=== PATIENT | female | born 1975 | race Caucasian/White ===

== ENCOUNTER → 2017-03-02 | Outpatient (CLI) | payer BC ==
[~2017-03-02] MED LIST: BUMETANIDE0.5 MG PO; DIFLUCAN 100MG100 MG PO; HCTZ 25MG TAB25 MG PO; HCTZ 25MG25 MG PO; LANTUS SOLOS100 U/ML SQ; NASONEX0.05 MG/AC NS; NEURONTIN300 MG/CAP PO; PEPCID AC 10MG10 MG PO; PRENATAL1 TA1 PO; PROTONIX 40MG T40 MG PO; ZYRTEC10 M1 PO; ZYRTEC10 MG PO
== END ==
LOC: MC.RAD 14:58
DX: Z12.31 Encounter for screening mammogram for malignant neoplasm of breast (principal)

== ENCOUNTER → 2017-06-02 | Outpatient (CLI) | payer BC | LOC: COL.VAS 14:05 | DX: L53.9 Erythematous condition, unspecified (principal); M79.89 Other specified soft tissue disorders ==

== ENCOUNTER → 2017-08-04 | Outpatient (CLI) | payer BC | LOC: COL.RAD 12:42 | DX: N18.3 Chronic kidney disease, stage 3 (moderate) (principal); N28.89 Other specified disorders of kidney and ureter; N83.201 Unspecified ovarian cyst, right side ==

== ENCOUNTER → 2017-11-29 | Outpatient (CLI) | payer BC | LOC: SUN.DIA 08-16 10:51 | DX: E11.40 Type 2 diabetes mellitus with diabetic neuropathy, unspecified (principal); E78.5 Hyperlipidemia, unspecified; E66.9 Obesity, unspecified; Z68.42 Body mass index [BMI] 45.0-49.9, adult; Z71.3 Dietary counseling and surveillance | CPT/HCPCS: G0108 ==

== ENCOUNTER → 2018-12-11 | Outpatient (CLI) | payer BC | LOC: MC.RAD 07:15 | DX: Z12.31 Encounter for screening mammogram for malignant neoplasm of breast (principal) ==

== ENCOUNTER 2019-07-24 17:46 | Emergency (ER) | payer BC ==
[~2019-07-24] VITALS: Ht 162.6 cm; Wt 119.5 kg
[2019-07-24 17:57] VITALS: BP 126/81; TEMP 97.7
[2019-07-24] MEDS ORDERED: LIPITOR20 MG PO (19:04)
[2019-07-24] MEDS ORDERED: PROTONIX 40MG T40 MG PO (19:04)
[2019-07-24] MEDS ORDERED: GLUCOPHAGE XR500 M1 PO (19:05)
[2019-07-24] MEDS ORDERED: NEURONTIN300 MG/CAP PO (19:05)
[2019-07-24] MEDS ORDERED: NOVOLOG FLEX100 U/ML SQ (19:05)
[2019-07-24] MEDS ORDERED: AMOXICILLIN 8751 TAB PO (20:17)
[2019-07-24 20:50] VITALS: PULSE 87
== END 2019-07-24 20:53 | disposition home or self-care (01) ==
LOC: COL.ER 17:46
DX: S91.151A Open bite of right great toe without damage to nail, initial encounter (principal); I10 Essential (primary) hypertension; E11.9 Type 2 diabetes mellitus without complications; Z79.4 Long term (current) use of insulin; Z23 Encounter for immunization; Z91.040 Latex allergy status; W55.01XA Bitten by cat, initial encounter

== ENCOUNTER 2019-07-26 18:57 | Emergency (ER) | payer BC ==
[~2019-07-26] VITALS: Ht 162.6 cm; Wt 119.5 kg
[~2019-07-26 18:57] MED LIST changes: +AMOXICILLIN 8751 TAB PO; +GLUCOPHAGE XR500 M1 PO; +LIPITOR20 MG PO; +NOVOLOG FLEX100 U/ML SQ
[2019-07-26 19:03] VITALS: BP 131/79; TEMP 98.6
[2019-07-26 20:42] VITALS: PULSE 92
== END 2019-07-26 20:42 | disposition home or self-care (01) ==
LOC: COL.ER 18:57
DX: S91.151A Open bite of right great toe without damage to nail, initial encounter (principal); Z20.3 Contact with and (suspected) exposure to rabies; Z23 Encounter for immunization; Z79.4 Long term (current) use of insulin; W55.01XA Bitten by cat, initial encounter
CPT/HCPCS: 90375

== ENCOUNTER 2019-08-04 11:56 | Outpatient (RCR) | payer BC ==
[~2019-08-04] VITALS: Ht 162.6 cm; Wt 119.5 kg
[2019-08-04 12:12] VITALS: BP 135/73; PULSE 93; TEMP 97.7
[2019-08-25] MEDS ORDERED: ZYLOPRIM 100MG100 MG PO (19:36)
[2019-08-25] MEDS ORDERED: LYRICA 50MG CAP50 MG PO (19:37)
[2019-08-25] MEDS ORDERED: OZEMPIC0.25 MG/0. SQ (19:37)
[2019-08-26] MEDS ORDERED: NORCO 325 MG-51 TAB PO (01:51)
[2019-08-26] MEDS ORDERED: ZOFRAN ODT4 MG PO (01:51)
[2019-08-28] MEDS ORDERED: ZYLOPRIM 300MG300 MG PO (06:14)
[2019-08-28] MEDS ORDERED: LYRICA200 MG PO (06:14)
[2019-08-28] MEDS ORDERED: LASIX 40MG TABL40 MG PO (06:15)
[2019-08-28] MEDS ORDERED: TRESIBA FL200 UNIT/1 SQ (16:06)
[2019-08-29] MEDS ORDERED: IBU600 MG PO (09:19)
[2019-08-29] MEDS ORDERED: PERCOCET 325 MG1 TA2 PO (09:20)
[2019-08-30] MEDS ORDERED: INDOCIN 25MG CA25 MG PO (09:07)
== END 2019-10-29 | disposition still patient (30) ==
LOC: EUO
DX: Z29.14 Encounter for prophylactic rabies immune globulin (principal); Z23 Encounter for immunization; S91.151A Open bite of right great toe without damage to nail, initial encounter

== ENCOUNTER 2019-08-13 13:12 | Outpatient (RCR) | payer BC ==
[2019-08-13 13:31] VITALS: BP 124/74; PULSE 85; TEMP 97.6
[2019-08-25] MEDS ORDERED: ZYLOPRIM 100MG100 MG PO (19:36)
[2019-08-25] MEDS ORDERED: LYRICA 50MG CAP50 MG PO (19:37)
[2019-08-25] MEDS ORDERED: OZEMPIC0.25 MG/0. SQ (19:37)
[2019-08-26] MEDS ORDERED: ZOFRAN ODT4 MG PO (01:51)
[2019-08-26] MEDS ORDERED: NORCO 325 MG-51 TAB PO (01:51)
[2019-08-28] MEDS ORDERED: LYRICA200 MG PO (06:14)
[2019-08-28] MEDS ORDERED: ZYLOPRIM 300MG300 MG PO (06:14)
[2019-08-28] MEDS ORDERED: LASIX 40MG TABL40 MG PO (06:15)
[2019-08-28] MEDS ORDERED: TRESIBA FL200 UNIT/1 SQ (16:06)
[2019-08-29] MEDS ORDERED: IBU600 MG PO (09:19)
[2019-08-29] MEDS ORDERED: PERCOCET 325 MG1 TA2 PO (09:20)
[2019-08-30] MEDS ORDERED: INDOCIN 25MG CA25 MG PO (09:07)
== END 2019-11-11 | disposition home or self-care (01) ==
LOC: EUO
DX: Z29.14 Encounter for prophylactic rabies immune globulin (principal); Z23 Encounter for immunization; S91.151A Open bite of right great toe without damage to nail, initial encounter

== ENCOUNTER 2019-08-25 19:21 | Emergency (ER) | payer BC ==
[~2019-08-25] VITALS: Ht 162.6 cm; Wt 121.4 kg
[2019-08-25 19:32] VITALS: BP 129/85; TEMP 98.9
[2019-08-25] MEDS ORDERED: ZYLOPRIM 100MG100 MG PO (19:36)
[2019-08-25] MEDS ORDERED: OZEMPIC0.25 MG/0. SQ (19:37)
[2019-08-25] MEDS ORDERED: LYRICA 50MG CAP50 MG PO (19:37)
[2019-08-25 20:19] LABS: BASO # 0.1 (0.0-0.2); BASO % 0.7 % (0.0-2.0); EOS # 0.2 (0.0-0.7); EOS % 2.8 % (0-4.0); GRAN # 4.5 (1.4-6.5); GRAN % 63.1 % (42.2-75.2); HEMATOCRIT 44.1 % (37.0-47.0); HEMOGLOBIN 14.5 g/dl (12.5-16.0); LYMPH % 27.4 % (20.0-51.0); MEAN CELL VOLUME 84 fl (80.0-100.0); MEAN CORPUSCULAR HEMOGLOBIN 28 pg (27.0-31.0); MEAN CORPUSCULAR HGB CONC 33 g/dl (33.0-37.0); MEAN PLATELET VOLUME 10.4 fl (7.4-10.4); MONO # 0.4 (0.1-0.6); MONO % 5.6 % (1.7-9.3); PLATELET COUNT 243 K/mm3 (130-400); RED BLOOD COUNT 5.23 M/mm3 (4.10-5.30); REDCELL DISTRIBUTION WIDTH-CV 14.5 % (11.5-14.5)
[2019-08-25 20:31] LABS: ALBUMIN 4.6 gm/dL (3.5-5.0); BILIRUBIN,TOTAL 0.7 mg/dL (0.0-1.0); C-REACTIVE PROTEIN 0.9 mg/dL (0.0-0.9); CALCIUM 9.7 mg/dL (8.4-10.2); CREATININE, serum 1.14 (0.52-1.25); POTASSIUM 3.2 mmol/L (3.4-5.0); TOTAL PROTEIN 8.2 gm/dL (6.4-8.2)
[2019-08-25 21:04] LABS: COLLECTION METHOD CLEAN CATCH
[2019-08-25 21:14] LABS: PH 6 (5-8); SQUAMOUS EPITHELIAL 0-2 /hpf; URINE APPEARANCE Clear; URINE BACTERIA None Seen /hpf; URINE BILIRUBIN Negative (NEGATIVE); URINE BLOOD Negative (NEGATIVE); URINE COLOR Yellow; URINE GLUCOSE 3+ (NEGATIVE); URINE KETONE Negative (NEGATIVE); URINE LEUKOCYTE ESTERASE Negative (NEGATIVE); URINE NITRATE Negative (NEGATIVE); URINE PROTEIN(semi-quant) Negative (NEGATIVE); URINE RBC 0-2 /hpf; URINE UROBILINOGEN Negative (NEGATIVE)
[2019-08-26] MEDS ORDERED: ZOFRAN ODT4 MG PO (01:51)
[2019-08-26] MEDS ORDERED: NORCO 325 MG-51 TAB PO (01:51)
[2019-08-26 02:10] VITALS: PULSE 75
[2019-08-27 00:18] LABS: CA-125 21.7 U/mL (0.0-35.0)
[2019-08-27 12:01] LABS: CARCINOEMBRYONIC ANTIGEN 1.9 ng/mL (0.0-5.0)
== END 2019-08-26 02:10 | disposition home or self-care (01) ==
LOC: COL.ER 19:21
PROVIDERS: Emergency Medicine
DX: N83.9 Noninflammatory disorder of ovary, fallopian tube and broad ligament, unspecified (principal); E11.9 Type 2 diabetes mellitus without complications; Z79.4 Long term (current) use of insulin; Z87.448 Personal history of other diseases of urinary system; Z98.51 Tubal ligation status
CPT/HCPCS: J2405; J3010; J7030; Q9967

== ENCOUNTER 2019-08-27 16:02 | Inpatient (IN) | payer BC ==
[~2019-08-27] VITALS: Ht 162.6 cm; Wt 120.3 kg
[~2019-08-27 16:02] MED LIST changes: +LYRICA 50MG CAP50 MG PO; +NORCO 325 MG-51 TAB PO; +OZEMPIC0.25 MG/0. SQ; +ZOFRAN ODT4 MG PO; +ZYLOPRIM 100MG100 MG PO
[2019-08-28] VITALS (11 sets, daily range): BP systolic 99–112; BP diastolic 55–78; PULSE 68–85; TEMP 97.8–98.1
[2019-08-28] MEDS ORDERED: LYRICA200 MG PO (06:14)
[2019-08-28] MEDS ORDERED: ZYLOPRIM 300MG300 MG PO (06:14)
[2019-08-28] MEDS ORDERED: LASIX 40MG TABL40 MG PO (06:15)
--- NOTE | 2019-08-28 07:04 | NUR ---
Patient arrived to [facility] for admission at 0551. She is alert and oriented. Procedure confirmed, denies any questions, and verbalizes understanding. VSS and WNL on room air. BG 220. Breath sounds clear/diminished bilaterally to auscultation. Clear S1S2 heart tones heard with regular rate noted. +2 radial, DP and PT pulses bilaterally. Bowel sounds active and audible x4 quadrants. Abdomen soft, tender. PERRLA noted. +1 edema of BLE. She has baseline numbness/tingling neuropathies in BLE. Call light usage taught and within reach.
--- NOTE | 2019-08-28 07:24 | NUR ---
Patient to the OR at this time.
--- NOTE | 2019-08-28 07:25 | NUR ---
Patient's belongings taken to PACU. 1 suitcase and 1 patient belongings bag.
--- NOTE | 2019-08-28 12:37 | NUR ---
PATIENT DESATS TO 61% AND ENCOURAGED TO TAKE A DEEP BREATH TO INCREASE O2. SATS INCREASE TO 90-92% WITH DEEP BREATHS. RESPIRATORTY THERAPY CALLED AT THIS TIME. DR BUNN CALLED AND UPDATED. ORDERS GIVEN TO APPLY BIPAP AT THIS TIME.
--- NOTE | 2019-08-28 12:40 | NUR ---
RESPIRATORY HERE AT BEDSIDE. BIPAP APPLIED AT THIS TIME. PATIENT SATS ARE 100%
--- NOTE | 2019-08-28 12:42 | NUR ---
BIPAP ON PATIENT AND RESPIRATORY THERAPY KELSEY AT BEDSIDE.
--- NOTE | 2019-08-28 13:02 | NUR ---
BLOOD SUGAR CHECKED PER MOTHER REQUEST AT THIS TIME. BLOOD SUGAR 195
--- NOTE | 2019-08-28 13:33 | NUR ---
1330 PATIENT RESTING IN BED. BIPAP ON. O2 SAT 99%. MOTHER AT BEDSIDE.
[2019-08-28] MEDS ORDERED: TRESIBA FL200 UNIT/1 SQ (16:06)
--- NOTE | 2019-08-28 17:35 | NUR ---
PT PLACED ON BIPAP AT [address] BUNN ORDER. PT ELLIOT WELL AND WAS ABLE TO COME OFF ONCE COMPLETELY AWAKE FROM MEDS POST SURGERY. BIPAP WAS D/C AT THIS TIME AND PT WILL USE HER HOME CPAP TONIGHT FOR SLEEP. HR 67 RR 16 SPO2 99% ON NASAL CANNULA. PT IS NOW AWAKE AND ALERT.
--- NOTE | 2019-08-28 17:41 | NUR ---
BLOOD SUGAR 180 AT THIS TIME. PATIENT SITS UP IN BED EATING SUPPER. 02 2L/NC SAO2 98%
--- NOTE | 2019-08-28 19:00 | NUR ---
1900 SEVERAL VISITORS IN ROOM. O2 REMAINS AT 2L/NC. PIPER DRAINING YELLOW URINE. REGULAR DIET TAKEN.
--- NOTE | 2019-08-28 20:00 | NUR ---
1999 BLOOD SUGAR DONE= 187. O2 SAT 97%. UP TO BR WITH ASSIST AND PERICARE DONE. PIPER REMAINS. ELLIOT BEING UP WELL. RETURNED TO BED AND SCHEDULED MEDS AND INSULING GIVEN. PERCOCET X1 PO FOR C/O INC SITE PAIN. MOVES WELL. CPAP ON AND CHECKED PER RESP THERAPY. READY FOR SLEEP.
[2019-08-29] VITALS (7 sets, daily range): BP systolic 87–105; BP diastolic 50–55; PULSE 78–100; TEMP 97.7–98.4
--- NOTE | 2019-08-29 | NUR ---
0000 UP TO BR ON OWN WITH URGE TO HAVE A BM. ASSIST BACK TO BED. VS DONE. O2 SAT 98% WITH NO OXYGEN ON. O2 ON AT 2L PER NC PER PTS REQUEST. MOVES WELL WHEN UP. WARM BLANKETS TO ABD FOR C/O CRAMPING.
--- NOTE | 2019-08-29 02:00 | NUR ---
0200 PERCOCET X1 PO FOR C/O INC PAIN. TURNED TO RIGHT SIDE FOR COMFORT. O2 CONTS PER NC AT 2L/MIN.
--- NOTE | 2019-08-29 04:00 | NUR ---
0400 O2 SAT= 96%. O2 CONTS AT 2L/MIN PER NC. SCHEDULED MOTRIN GIVEN. NO COMPLAINTS AT THIS TIME.
--- NOTE | 2019-08-29 07:38 | NUR ---
Patient awake and sitting up in bed ready for breakfast. AC blood sugar, 170. No insulin given. Protonix given on empty stomach.
--- NOTE | 2019-08-29 08:30 | NUR ---
0830: Oxygen off while patient awake and eating breakfast. 0920: Oxygen sat 97% on room air.
--- NOTE | 2019-08-29 09:10 | NUR ---
Initial visit attempt; Patient out of room, Global Marketing Specialist left card letting the patient know of the availability of spiritual care at [facility].
[2019-08-29] MEDS ORDERED: IBU600 MG PO (09:19)
[2019-08-29] MEDS ORDERED: PERCOCET 325 MG1 TA2 PO (09:20)
--- NOTE | 2019-08-29 14:00 | NUR ---
patient going to take nap. CPAP machine on.
--- NOTE | 2019-08-29 21:00 | NUR ---
BS done - 285. Spoke with Dr. Mendez. Pt reports she gives herself 15 units of insulin instead of the 9 units as ordered when her BS is closer to 300. Order received for 15 units insulin to be given now and recheck BS 2 hours after.
[2019-08-30 04:40] VITALS: BP 110/53; PULSE 90; TEMP 98.8
[2019-08-30 07:30] VITALS: BP 96/49; PULSE 59; TEMP 97.4
--- NOTE | 2019-08-30 08:48 | NUR ---
Initial visit; Patient thanked Telephone Plant Power Operator for offering prayer and God's blessings.
[2019-08-30] MEDS ORDERED: INDOCIN 25MG CA25 MG PO (09:07)
--- NOTE | 2019-08-30 15:25 | NUR ---
Fleets enema given as ordered. Tolerates well.
[2019-08-30 15:50] VITALS: BP 96/58; PULSE 62; TEMP 97
--- NOTE | 2019-08-30 17:20 | NUR ---
Dismissed to home with instructions, verbalizes understanding. Ambulates with this nurse outside. Rides with friend. Alert, stable.
== END 2019-08-30 17:20 | disposition home or self-care (01) | DRG 742 ==
LOC: INPTSU 08-28 05:36 → OB 08-28 07:30
PROVIDERS: ADMIT Obstetrics & Gynecology
PROC: 0UB10ZZ Excision of Left Ovary, Open Approach (ICD-10-PCS; 2019-08-28)
PROC: 0UT50ZZ Resection of Right Fallopian Tube, Open Approach (ICD-10-PCS; principal; 2019-08-28 07:30)
PROC: 0UT00ZZ Resection of Right Ovary, Open Approach (ICD-10-PCS; 2019-08-28 07:30)
DX: D27.0 Benign neoplasm of right ovary (principal); N83.521 Torsion of right fallopian tube; Z68.42 Body mass index [BMI] 45.0-49.9, adult; E11.9 Type 2 diabetes mellitus without complications; E66.01 Morbid (severe) obesity due to excess calories; G47.33 Obstructive sleep apnea (adult) (pediatric); D27.1 Benign neoplasm of left ovary; Z91.040 Latex allergy status
CPT/HCPCS: A4314; J0171; J0690; J1170; J1815; J1885; J2405; J2550; J2704; J2710; J3010; J7030; J7120

== ENCOUNTER 2021-05-25 18:10 | Emergency (ER) | payer BC ==
[~2021-05-25] VITALS: Ht 162.6 cm; Wt 122.7 kg
[~2021-05-25 18:10] MED LIST changes: +IBU600 MG PO; +INDOCIN 25MG CA25 MG PO; +LASIX 40MG TABL40 MG PO; +LYRICA200 MG PO; +PERCOCET 325 MG1 TA2 PO; +TRESIBA FL200 UNIT/1 SQ; +ZYLOPRIM 300MG300 MG PO
[2021-05-25] MEDS ORDERED: NORCO 325 MG-51 TAB PO (23:57)
[2021-05-26 00:30] VITALS: BP 135/80; PULSE 76; TEMP 97.9
== END 2021-05-26 00:30 | disposition home or self-care (01) ==
LOC: COL.ER 18:10
DX: S53.104A Unspecified dislocation of right ulnohumeral joint, initial encounter (principal); E11.9 Type 2 diabetes mellitus without complications; K21.9 Gastro-esophageal reflux disease without esophagitis; Z79.4 Long term (current) use of insulin; Z79.899 Other long term (current) drug therapy; W01.0XXA Fall on same level from slipping, tripping and stumbling without subsequent striking against object, initial encounter; Y93.01 Activity, walking, marching and hiking; Y92.000 Kitchen of unspecified non-institutional (private) residence as the place of occurrence of the external cause
CPT/HCPCS: J1170; J2704; J3010; J7030

== ENCOUNTER 2021-09-09 10:00 | Outpatient (CLI) | payer BC ==
[2021-09-09] VITALS (7 sets, daily range): BP systolic 70–1124; BP diastolic 48–84; PULSE 90–96; TEMP 100.9
== END 2021-09-09 12:30 | disposition home or self-care (01) ==
LOC: EUO 10:00
DX: U07.1 COVID-19 (principal); E66.9 Obesity, unspecified; E11.22 Type 2 diabetes mellitus with diabetic chronic kidney disease; N18.9 Chronic kidney disease, unspecified
CPT/HCPCS: M0245

== ENCOUNTER 2021-09-11 15:07 | Inpatient (IN) | payer BC ==
[~2021-09-11] VITALS: Ht 162.6 cm; Wt 125.0 kg
[2021-09-11 15:31] LABS: HEMATOCRIT 42.6 % (37.0-47.0); HEMOGLOBIN 13.7 g/dl (12.5-16.0); MEAN CELL VOLUME 80 fl (80.0-100.0); MEAN CORPUSCULAR HEMOGLOBIN 26 pg (27-31); MEAN CORPUSCULAR HGB CONC 32 g/dl (33.0-37.0); PLATELET COUNT 229 K/mm3 (130-400); REDCELL DISTRIBUTION WIDTH-CV 15.9 % (11.5-14.5)
[2021-09-11 15:44] LABS: BILIRUBIN,TOTAL 0.5 mg/dL (0.2-1.2); CALCIUM 8.9 mg/dL (8.4-10.2); CREATININE, serum 1.48 mg/dL (0.57-1.11); POTASSIUM 4.4 mmol/L (3.5-4.5)
[2021-09-11 15:52] LABS: ANISOCYTOSIS 1+; BAND 5 % (0-10); LYMPHOCYTE 14 % (20.0-51.0); NEUTROPHILS 76 % (42.0-75.2); NUCLEATED RED BLOOD CELL 1 (0-6); PLATELET ESTIMATE NORMAL (NORMAL)
[2021-09-11] MEDS ORDERED: JARDIANCE10 (15:54)
--- NOTE | 2021-09-11 18:51 | NUR ---
Recieved call from lab. D-Dimer elevated to 250. HALLE Edmonds made aware
[2021-09-11] MEDS ORDERED: ULORIC40 MG PO (18:57)
[2021-09-11] MEDS ORDERED: NOVOLOG FLEX100 U/ML SQ (19:38)
[2021-09-11] MEDS ORDERED: D3-5050000 IU PO (19:40)
[2021-09-11] MEDS ORDERED: ZOFRAN 4MG T4 MG/TAB PO (19:42)
[2021-09-11] MEDS ORDERED: TESSALON P100 MG/CAP PO ×2 (19:44→19:46)
--- NOTE | 2021-09-11 19:55 | NUR ---
pt admitted to unit. Admission, med rec, pharmacy, and allergies completed/confirmed. Pt medications hung per orders. Report given to welder 2nd shift on needing physical assessment. Pt call light within reach, dinner given to pt.
[2021-09-11 20:17] VITALS: BP 131/77; PULSE 85; TEMP 98.7
[2021-09-12] VITALS (7 sets, daily range): BP systolic 108–137; BP diastolic 48–70; PULSE 69–80; TEMP 97.6–98.7
--- NOTE | 2021-09-12 06:36 | NUR ---
PT PLACED ON AIRVO @0140 D/T INABILITY TO MAINTAIN SATS ON OXYMASK, USING BSC D/T INCREASED SOB WITH ACTIVITY. IVF INFUSING @100 CC/HR, SS GIVEN @HS FOR BGM 216, 205 THIS AM. ZEE CARVAJAL STARTED PO FOR COUGH.
[2021-09-12 07:56] LABS: HEMOGLOBIN 12.7 g/dl (12.5-16.0); MEAN CELL VOLUME 83 fl (80.0-100.0); MEAN CORPUSCULAR HEMOGLOBIN 26 pg (27-31); MEAN CORPUSCULAR HGB CONC 31 g/dl (33.0-37.0); MEAN PLATELET VOLUME 10.3 fl (7.4-10.4); PLATELET COUNT 236 K/mm3 (130-400); RED BLOOD COUNT 4.97 M/mm3 (4.10-5.30); REDCELL DISTRIBUTION WIDTH-CV 15.9 % (11.5-14.5)
[2021-09-12 08:24] LABS: CALCIUM 8.6 mg/dL (8.4-10.2); CREATININE, serum 1.18 mg/dL (0.57-1.11); POTASSIUM 5.2 mmol/L (3.5-4.5)
--- NOTE | 2021-09-12 08:30 | NUR ---
PT ALERT AND ORIENTED IN ROOM. ABLE TO AMBULATE TO BEDSIDE COMMODE. PT HAS CLEAR UPPER LOBES, FINE CRACKLES IN BASES BILATERALLY. PT PULSES 1+ IN DORSALIS PEDIS AND POSTERIOR TIBIAL BILATERALLY, CAP REFILL <3S. PT RADIAL PULSES 2+ BILATERALLY. PT HAS NON-PITTING EDEMA IN UPPER AND LOWER EXTREMITIES. PT CALL LIGHT WITHIN REACH, BREAKFAST GIVEN.
[2021-09-12 09:34] LABS: BAND 6 % (0-10); LYMPHOCYTE 12 % (20.0-51.0); MYELOCYTE 1 % (0-0); NEUTROPHILS 76 % (42.0-75.2)
[2021-09-12 09:35] LABS: ANISOCYTOSIS 1+; PLATELET ESTIMATE NORMAL (NORMAL); POIKILOCYTOSIS 1+
[2021-09-12 10:00] LABS: ALBUMIN 2.6 gm/dL (3.5-5.0); BILIRUBIN,DIRECT 0.3 mg/dL (0.0-0.5); BILIRUBIN,TOTAL 0.5 mg/dL (0.2-1.2); TOTAL PROTEIN 7.2 gm/dL (6.2-8.1)
[2021-09-12 10:11] LABS: C-REACTIVE PROTEIN 8.44 mg/dL (0.00-0.50)
--- NOTE | 2021-09-12 16:50 | NUR ---
CONTACTED BROTHER BRADY FOR UPDATE. PRIVACY CODE RECEIVED. UPDATE GIVEN TO BEST OF ABILITY
[2021-09-12 17:14] LABS: COLLECTION METHOD CLEAN CATCH
[2021-09-12 17:34] LABS: SQUAMOUS EPITHELIAL 0-2 /hpf (0-10); URINE BACTERIA Rare /hpf (NONE SEEN); URINE RBC 0-2 /hpf (0-2); URINE WBC 0-2 /hpf (0-2)
[2021-09-12 17:36] LABS: PH 5 (5-8); URINE APPEARANCE Clear (CLEAR/HAZY); URINE COLOR Yellow (YELLOW); URINE GLUCOSE 3+ (NEGATIVE); URINE PROTEIN(semi-quant) Negative (NEGATIVE)
[2021-09-12 17:37] LABS: URINE BILIRUBIN Negative (NEGATIVE); URINE BLOOD Negative (NEGATIVE); URINE KETONE 1+ (NEGATIVE); URINE LEUKOCYTE ESTERASE Negative (NEGATIVE); URINE NITRATE Negative (NEGATIVE); URINE UROBILINOGEN Negative (NEGATIVE)
--- NOTE | 2021-09-12 18:52 | NUR ---
PT CONTINUING ON PLAN OF CARE. PT RECEIVING MEDICATIONS PER ORDERS. PT ABLE TO USE CALL LIGHT AND EXPRESS NEEDS. PT ABLE TO AMBULATE TO BEDSIDE COMMODE INDEPENDENTLY. NO SIGNIFICANT CHANGES IN PT STATUS THIS SHIFT.
[2021-09-13 05:12] VITALS: BP 145/75; PULSE 73; TEMP 98.7
--- NOTE | 2021-09-13 06:40 | NUR ---
pt on bipap during periods of sleep, on airvo while awake, up to bsc ad terra, but calls for assistance to get back in bed. encouraged to walk in room today as tolerated. no diarrhea tonight.
[2021-09-13 07:28] LABS: HEMOGLOBIN 13.1 g/dl (12.5-16.0); MEAN CELL VOLUME 83 fl (80.0-100.0); MEAN CORPUSCULAR HEMOGLOBIN 25 pg (27-31); MEAN CORPUSCULAR HGB CONC 31 g/dl (33.0-37.0); MEAN PLATELET VOLUME 10.6 fl (7.4-10.4); PLATELET COUNT 267 K/mm3 (130-400); REDCELL DISTRIBUTION WIDTH-CV 15.8 % (11.5-14.5)
[2021-09-13 07:30] LABS: CALCIUM 9.1 mg/dL (8.4-10.2); CREATININE, serum 1.18 mg/dL (0.57-1.11); POTASSIUM 5.2 mmol/L (3.5-4.5)
[2021-09-13 08:00] VITALS: BP 126/66; PULSE 76; TEMP 97.9
--- NOTE | 2021-09-13 08:00 | NUR ---
Patient sitting up in the bed watching TV. A&Ox4. VSS on Airvo. No reported SOB and states that she is feeling better. Denies pain and is independent in the room. IV CDI. Droplet/contact precautions in place. No further needs expressed. Call light within reach
[2021-09-13 09:01] LABS: PATHOLOGY DIFF REVIEW OK
[2021-09-13 09:47] LABS: BAND 7 % (0-10); LYMPHOCYTE 21 % (20.0-51.0); METAMYELOCYTE 1 % (0-0); NEUTROPHILS 69 % (42.0-75.2)
[2021-09-13 09:48] LABS: PLATELET ESTIMATE NORMAL (NORMAL)
[2021-09-13 11:43] VITALS: BP 137/73; PULSE 70; TEMP 98.1
[2021-09-13 16:00] VITALS: BP 123/77; PULSE 75; TEMP 97.6
--- NOTE | 2021-09-13 18:30 | NUR ---
Patient has complaints of pain in IV from ABX. Ice pack applied and patient tolerating well. A&Ox4. VSS. Airvo, no reported SOB. Independent in the room. Denies pain and discomfort. Droplet/contact precautions in place. Call light within reach
[2021-09-13 20:33] VITALS: BP 125/55; PULSE 76; TEMP 97.8
[2021-09-14 00:12] VITALS: BP 110/65; PULSE 64; TEMP 97.8
--- NOTE | 2021-09-14 04:21 | NUR ---
pt on airvo 70% 45L while awake and bipap 16/12 60% when sleeping, pt had difficulty tolerating doxycycline infusion, order rec'd to change to po, also rec'd order for PICC line placement, d/t pt reporting she is a "hard stick" for labs and IV sites. using bsc with sba. would like to sit up today in recliner.
[2021-09-14 04:46] VITALS: BP 117/56; PULSE 68; TEMP 97.6
--- NOTE | 2021-09-14 07:44 | NUR ---
REPORT RECEIVED JIM SOUZA RN PT LYING IN BED, BRIELLE ON BIPA. DENIES ANY NEEDS AT THIS TIME
[2021-09-14 08:26] LABS: HEMOGLOBIN 12.5 g/dl (12.5-16.0); MEAN CELL VOLUME 83 fl (80.0-100.0); MEAN CORPUSCULAR HEMOGLOBIN 25 pg (27-31); MEAN CORPUSCULAR HGB CONC 31 g/dl (33.0-37.0); MEAN PLATELET VOLUME 10.5 fl (7.4-10.4); PLATELET COUNT 319 K/mm3 (130-400); RED BLOOD COUNT 4.97 M/mm3 (4.10-5.30)
[2021-09-14 08:30] VITALS: BP 124/63; PULSE 69; TEMP 97.7
[2021-09-14 08:42] LABS: CALCIUM 9.1 mg/dL (8.4-10.2); CREATININE, serum 1.18 mg/dL (0.57-1.11); POTASSIUM 4.9 mmol/L (3.5-4.5)
[2021-09-14 08:53] LABS: BAND 5 % (0-10); EOSINOPHIL 1 % (0-4); LYMPHOCYTE 15 % (20.0-51.0); METAMYELOCYTE 4 % (0-0); NUCLEATED RED BLOOD CELL 1 (0-6); PLATELET ESTIMATE NORMAL (NORMAL)
[2021-09-14 08:54] LABS: NEUTROPHILS 67 % (42.0-75.2)
[2021-09-14 12:17] VITALS: BP 122/63; PULSE 71; TEMP 97.7
--- NOTE | 2021-09-14 14:13 | NUR ---
Languages And Literature Instructor contacted patient by room phone as she is in isolation for [facility]. Patient lives in [place] with her fifteen year old son and sees Dr. Herron for primary care. Patient obtains medications from [facility] with no difficulties and does not normally use any DME. Patient is currently requiring 45 liters of oxygen. 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 Patient does not have Advance Directives at this time. Patient is and only has one son who is 15. Patient's legal next of kin would be her parents Kenan and Randee (ph#[phone]). Patient states she plans to return home upon discharge. Discharge Plan: Home (possible home oxygen)
[2021-09-14 16:51] VITALS: BP 102/79; PULSE 87; TEMP 97.8
[2021-09-14 19:41] VITALS: BP 112/59; PULSE 87; TEMP 97.8
[2021-09-15 00:44] VITALS: BP 107/70; PULSE 76; TEMP 98.2
[2021-09-15 05:25] VITALS: BP 101/72; PULSE 75; TEMP 97.9
[2021-09-15 06:56] LABS: HEMATOCRIT 39.4 % (37.0-47.0); HEMOGLOBIN 12.4 g/dl (12.5-16.0); MEAN CELL VOLUME 80 fl (80.0-100.0); MEAN CORPUSCULAR HEMOGLOBIN 25 pg (27-31); MEAN CORPUSCULAR HGB CONC 32 g/dl (33.0-37.0); MEAN PLATELET VOLUME 10.2 fl (7.4-10.4); PLATELET COUNT 300 K/mm3 (130-400); REDCELL DISTRIBUTION WIDTH-CV 15.8 % (11.5-14.5)
[2021-09-15 07:03] LABS: CALCIUM 8.8 mg/dL (8.4-10.2); CREATININE, serum 1.11 mg/dL (0.57-1.11); POTASSIUM 4.4 mmol/L (3.5-4.5)
--- NOTE | 2021-09-15 07:21 | NUR ---
pt tolerating BiPap while sleeping, using airvo while awake, up to BSC with minimal assistance, PICC line patent/secure to ANAID.
[2021-09-15 07:45] LABS: BAND 5 % (0-10); EOSINOPHIL 3 % (0-4); LYMPHOCYTE 37 % (20.0-51.0); METAMYELOCYTE 1 % (0-0); NEUTROPHILS 49 % (42.0-75.2); NUCLEATED RED BLOOD CELL 2 (0-6); PLATELET ESTIMATE NORMAL (NORMAL); POLYCHROMASIA 1+
[2021-09-15 07:58] VITALS: BP 109/49; PULSE 82; TEMP 98.2
--- NOTE | 2021-09-15 08:00 | NUR ---
Patient resting in bed, easily awakened with verbal command. A&Ox4. VSS on Airvo, no reported SOB. IV CDI. Denies pain and discomfort. Independent in the room. No further needs expressed. Call light within reach
[2021-09-15 10:17] LABS: ALBUMIN 2.7 gm/dL (3.5-5.0); BILIRUBIN,DIRECT 0.2 mg/dL (0.0-0.5); BILIRUBIN,TOTAL 0.3 mg/dL (0.2-1.2); TOTAL PROTEIN 6.5 gm/dL (6.2-8.1)
[2021-09-15 12:22] VITALS: BP 121/77; PULSE 77; TEMP 98
[2021-09-15 16:20] VITALS: BP 116/57; PULSE 77; TEMP 98.1
--- NOTE | 2021-09-15 18:23 | NUR ---
Patient was able to shower independently and has been walking more in the room. On HF O2 4L, no reported SOB. A&Ox4. VSS. IV CDI. Denies pain and discomfort. Droplet/contact precautions in place. No further needs expressed. Call light within reach. Patient has been independent with daily care
[2021-09-15 20:12] VITALS: BP 102/51; PULSE 79; TEMP 98.2
[2021-09-16 00:06] VITALS: BP 103/57; PULSE 75; TEMP 97.9
--- NOTE | 2021-09-16 01:15 | NUR ---
PT IS RESTING QUIETLY IN BED WITH OXYGEN ON VIA NC. RESPIRATIONS UNLABORED. PT IS AWAKENED ET TELEMETRY LEADS ARE CHECKED. NEW PADS PLACED ET LEADS CORRECTED. PT DENIES PAIN OR OTHER NEEDS @ THIS TIME. AMBULATES INDEPENDENTLY TO BR, GAIT IS STEADY ET PT TOLERATES WELL. CALL LIGHT WITHIN REACH.
[2021-09-16 03:50] VITALS: BP 109/60; PULSE 70; TEMP 97.8
[2021-09-16 06:53] LABS: HEMATOCRIT 39.8 % (37.0-47.0); HEMOGLOBIN 12.4 g/dl (12.5-16.0); MEAN CELL VOLUME 81 fl (80.0-100.0); MEAN CORPUSCULAR HEMOGLOBIN 25 pg (27-31); MEAN CORPUSCULAR HGB CONC 31 g/dl (33.0-37.0); MEAN PLATELET VOLUME 9.9 fl (7.4-10.4); PLATELET COUNT 341 K/mm3 (130-400); RED BLOOD COUNT 4.91 M/mm3 (4.10-5.30); REDCELL DISTRIBUTION WIDTH-CV 15.5 % (11.5-14.5)
--- NOTE | 2021-09-16 06:54 | NUR ---
PT IS SLEEPING WITH 4L O2 VIA NC WHEN NURSE ENTERS ROOM. PT AWAKENS EASILY, IS LYING SUPINE. RESPIRATIONS ARE UNLABORED. BLOOD FOR LABS ARE DRAWN FROM PICC LINE, FLUSHES EASILY WITH GOOD BLOOD RETURN. PT DENIES PAIN OR OTHER NEEDS. CALL LIGHT WITHIN REACH.
[2021-09-16 07:08] LABS: CALCIUM 8.8 mg/dL (8.4-10.2); CREATININE, serum 0.99 mg/dL (0.57-1.11); POTASSIUM 4.5 mmol/L (3.5-4.5)
[2021-09-16 07:44] LABS: BAND 9 % (0-10); EOSINOPHIL 3 % (0-4); LYMPHOCYTE 24 % (20.0-51.0); METAMYELOCYTE 2 % (0-0); NEUTROPHILS 57 % (42.0-75.2); PLATELET ESTIMATE NORMAL (NORMAL)
[2021-09-16 08:39] VITALS: BP 100/55; PULSE 76; TEMP 97.7
[2021-09-16] MEDS ORDERED: DECADRON6 MG PO (10:45)
[2021-09-16 11:51] VITALS: BP 148/84; PULSE 94; TEMP 98.2
--- NOTE | 2021-09-16 13:30 | NUR ---
Discharge paperwork reviewed with the patient at the door side. Patient verbalized an understanding to follow doctors orders and covid 19 discharge recommendations. PICC line removed by HALLE Trujillo. Patient waiting on a taxi for a ride home. No further needs expressed. Call light within reach
--- NOTE | 2021-09-16 14:45 | NUR ---
Patient taken by wheelchair to the patient entrance to a taxi to take her home. Discharge paperwork and personal belongings with the patient. No further needs expressed. Covid precautions taken when transfering the patient to the patient entrance.
== END 2021-09-16 14:45 | disposition home or self-care (01) | DRG 177 ==
LOC: COL.ER 15:07 → MEDICAL 16:55
PROVIDERS: Personal Emergency Response Attendant; ADMIT Student in an Organized Health Care Education/Training Program
PROC: XW033E5 Introduction of Remdesivir Anti-infective into Peripheral Vein, Percutaneous Approach, New Technology Group 5 (ICD-10-PCS; principal; 2021-09-11)
PROC: 5A09457 Assistance with Respiratory Ventilation, 24-96 Consecutive Hours, Continuous Positive Airway Pressure (ICD-10-PCS; 2021-09-13)
PROC: 02HV33Z Insertion of Infusion Device into Superior Vena Cava, Percutaneous Approach (ICD-10-PCS; 2021-09-14)
PROC: 5A0945A Assistance with Respiratory Ventilation, 24-96 Consecutive Hours, High Flow/Velocity Cannula (ICD-10-PCS; 2021-09-15)
DX: U07.1 COVID-19 (principal); J12.82 Pneumonia due to coronavirus disease 2019; J96.01 Acute respiratory failure with hypoxia; N17.9 Acute kidney failure, unspecified; Z68.42 Body mass index [BMI] 45.0-49.9, adult; K21.9 Gastro-esophageal reflux disease without esophagitis; E66.01 Morbid (severe) obesity due to excess calories; M10.9 Gout, unspecified; E11.42 Type 2 diabetes mellitus with diabetic polyneuropathy; G47.33 Obstructive sleep apnea (adult) (pediatric); E86.0 Dehydration; S53.104A Unspecified dislocation of right ulnohumeral joint, initial encounter; Z79.4 Long term (current) use of insulin; Z73.0 Burn-out
CPT/HCPCS: 99223-AI; 99232-AI; 99233-AI; C1751; C1892; J0456; J0696; J1100; J1650; J1815; J2405; J7030; J7050; Q0249